=== PATIENT | female | born 1960 | race Caucasian/White ===

== ENCOUNTER 2020-05-22 16:00 | Inpatient (IN) | payer BC, SELFPAY ==
[~2020-05-22] VITALS: Ht 167.6 cm; Wt 60.5 kg
[~2020-05-22 16:00] MED LIST: GLYCOPYRROLATE 0.2 MG/ML VIAL IJ ONE; LEVOFLOXACIN 500 MG/D5W 100 ML PIGGYBACK IV ONE; LR 500 ML IV.SOLN IV ONE; METOCLOPRAMIDE HCL 10 MG/2 ML VIAL IVP ONE; MIDAZOLAM HCL 5 MG/5 ML VIAL IVP ONE; NEOSTIGMINE METHYLSULFATE 1 MG/ML, 10 ML VIAL IVP ONE; NS 1000 ML IV.SOLN IV ONE; NS IRRIG SOLN 1000 ML IR ONE; ONDANSETRON HCL 4 MG/2 ML VIAL IVP ONE; PROPOFOL 200MG/ 20ML VIAL (DIPRIVAN) IV ONE; ROCURONIUM BROMIDE 10 MG/ML (ZEMURON) IV ONE; SEVOFLURANE 15 MIN GAS INH ONE; SUCCINYLCHOLINE CHLORIDE 20 MG/ML(QUELICIN) IVP ONE; fentaNYL CITRATE/PF 100 MCG/2 ML AMP IVP ONE
[2020-05-22 16:10] VITALS: BP_SYST 140
--- NOTE | 2020-05-22 16:15 | NUR ---
PT TO REMAIN IN THE ER LOBBY UNTIL ER BED BECOMES AVAILABLE. URINE CUP PROVIDED FOR SAMPLE.
--- NOTE | 2020-05-22 16:30 | NUR ---
Patient to ER bed 6 to gown for evaluation. Side rails up. Report given to Milena.
--- NOTE | 2020-05-22 16:39 | NUR ---
ER at bedside examining patient.
--- NOTE | 2020-05-22 16:40 | NUR ---
Patient presented to ER C/O abdominal pain. Patient ambulatory to ER A&Ox4, skin pink and warm, speaking in full sentences, pain 5/10, nausea & vomiting, denies diarrhea. Patient states she has abdominal pain x3 days, decreased appetite, nausea & vomiting x2 days.
[2020-05-22] MEDS ORDERED: KETOROLAC TROMETHAMINE 60 MG/2 ML VIAL IM ONE (16:45)
--- NOTE | 2020-05-22 17:10 | NUR ---
Patient to radiology with staff via wheelchair.
[2020-05-22 17:23] LABS: BASOPHILS # (AUTO) 0.1 K/uL (0.0-0.2); BASOPHILS % (AUTO) 0.9 % (0.0-2.0); EOSINOPHILS # (AUTO) 0.1 K/uL (0.0-0.4); EOSINOPHILS % (AUTO) 1.5 % (0.0-4.0); HEMATOCRIT 40.6 % (36-48); HEMOGLOBIN 14.1 g/dL (12.0-16.0); LYMPHOCYTES # (AUTO) 2.2 K/uL (1.0-5.5); LYMPHOCYTES % (AUTO) 32.4 % (20.5-51.5); MEAN CORPUSCULAR HEMOGLOBIN 34 pg (27-31); MEAN CORPUSCULAR HGB CONC 35 % (32-36); MEAN CORPUSCULAR VOLUME 98 fL (79.0-98.0); MONOCYTES # (AUTO) 0.8 K/uL (0.0-1.0); MONOCYTES % (AUTO) 11.2 % (1.7-9.3); NEUTROPHILS # (AUTO) 3.6 K/uL (1.8-7.7); PLATELET COUNT (AUTO) 178 K/uL (130-430); RED BLOOD CELL COUNT(AUTO) 4.15 MIL/uL (4.2-6.2); RED CELL DISTRIBUTION WIDTH 16.4 % (9.0-15.0); WHITE BLOOD COUNT (AUTO) 6.7 K/uL (4.8-10.8)
--- NOTE | 2020-05-22 17:35 | NUR ---
PT TO ER BED 6 FROM RADIOLOGY
[2020-05-22 17:51] LABS: CALCIUM 8.9 mg/dL (8.4-11.0); CREATININE 0.96 mg/dL (0.55-1.30); POTASSIUM 4.1 mmol/L (3.5-5.1)
[2020-05-22 18:15] LABS: ALBUMIN 3.1 g/dL (3.4-4.8)
[2020-05-22] MEDS ORDERED: ONDANSETRON HCL 4 MG/2 ML VIAL IVP PRN (18:45)
[2020-05-22] MEDS ORDERED: MORPHINE 4 MG/ML INJ. SYRINGE IVP PRN (19:00)
--- NOTE | 2020-05-22 19:00 | NUR ---
COVID-19 RAPID SWAB OBTAINED AND SENT TO LAB
--- NOTE | 2020-05-22 19:10 | NUR ---
REPORT TO NOVEMBER RN
[2020-05-22] MEDS: D5/0.45 NS 1,000 ML IV SCH (20:17)
--- NOTE | 2020-05-22 20:29 | NUR ---
Called for a room second time, spoke with Keke , They will call back.
--- NOTE | 2020-05-22 21:10 | NUR ---
Patient will be admitted to care of . Admitted to M/S unit. Will go to room 101B. Belongings list completed. Complete and up to date summary report printed. SBAR report to be given at bedside with opportunity for questions.
--- NOTE | 2020-05-22 21:28 | NUR ---
ADMISSION: The patient, TIEN MARCIAL, 59 y/o, F admitted by BOO AGUERO MD, WITH THE DIAGNOSIS OF CHOLEDOCHOLELITHIASIS TO ROOM 130 A . [facility] RN IS AWARE . Addendum: 05/23/20 at 0004 by Sloane Mcfarland RN DX IS CHOLEDOCHOLITHIASIS
[2020-05-22 21:44] VITALS: BP_SYST 116
--- NOTE | 2020-05-22 22:41 | NUR ---
MD CALLED : DR AGUERO CALLED, NOTIFIED HIM THAT PT IS ASKING FOR FOOD AND NO DIET ORDERED , MD ORDERED NPO . ORDER ENTERED , NOTIFIED PT AND PRIMARY RN .
--- NOTE | 2020-05-22 22:52 | NUR ---
MD CALLED : PT C/O ACID REFLEX , CALLED MD AND STATED PT IS C/O SEVERE DISCOMFORT FROM ACID REFLEX , MD ORDERED PROTONIX 40 MG IV DAILY FIRST DOSE NOW , ORDER READ BACK VERIFIED AND ENTERED . PRIMARY RN NOTIFIED
--- NOTE | 2020-05-22 22:59 | NUR ---
MED PATIENT MEDICATED WITH PROTONIX IV NEW ORDER FOR C/O ACID REFLUX. NO C/O PAIN AT THIS TIME. PLAN OF CARE DISCUSSED WITH PATIENT. NPO STATUS. IVF INFUSING ORDERED.
[2020-05-22] MEDS ORDERED: PANTOPRAZOLE SODIUM 40 MG/VIAL (PROTONIX) IVP ONE (23:00)
--- NOTE | 2020-05-22 23:23 | NUR ---
CONSULT: CONSULT CALLED FOR DR. NATHANIEL BARRETO MEDIA MARKETING COORDINATOR AT THIS MOMENT I SPOKE WITH BEVERLY DICKEY REASON FOR CONSULT: CHOLEDOCHOLITHIASIS REQUESTING CONSULT: DR. AGUERO ACCOUNTING MACHINE OPERATOR PHONE NUMBER: [phone]
[2020-05-23 00:49] VITALS: BP_SYST 144
--- NOTE | 2020-05-23 01:00 | NUR ---
ROUNDS PATIENT RESTING IN BED. NO DISTRESS NOTED. VITAL SIGNS STABLE. CALL LIGHT WITH IN REACH.
--- NOTE | 2020-05-23 03:39 | NUR ---
ROUNDS PATIENT AWAKE IN BED.NO DISTRESS NOTED. DENIES PAIN AT THIS TIME.
[2020-05-23] MEDS: D5/0.45 NS 1,000 ML IV SCH ×2 (06:26→20:27)
--- NOTE | 2020-05-23 06:44 | NUR ---
CLOSING NOTES PATIENT NEEDS ATTENDED. IVF INFUSING WITH IV LINE INTACT AND PATENT. BED IN LOWEST LOCKED POSITION. CALL LIGHT WITH IN REACH.
[2020-05-23 07:24] LABS: EOSINOPHILS # (AUTO) 0.2 K/uL (0.0-0.4); EOSINOPHILS % (AUTO) 4.6 % (0.0-4.0); HEMATOCRIT 39.2 % (36-48); HEMOGLOBIN 13.4 g/dL (12.0-16.0); LYMPHOCYTES # (AUTO) 1.7 K/uL (1.0-5.5); LYMPHOCYTES % (AUTO) 33.5 % (20.5-51.5); MEAN CORPUSCULAR HEMOGLOBIN 34 pg (27-31); MEAN CORPUSCULAR HGB CONC 34 % (32-36); MEAN CORPUSCULAR VOLUME 99 fL (79.0-98.0); MONOCYTES # (AUTO) 0.5 K/uL (0.0-1.0); MONOCYTES % (AUTO) 9.1 % (1.7-9.3); NEUTROPHILS # (AUTO) 2.7 K/uL (1.8-7.7); NEUTROPHILS % (AUTO) 51.8 % (40.0-70.0); PLATELET COUNT (AUTO) 161 K/uL (130-430); RED BLOOD CELL COUNT(AUTO) 3.97 MIL/uL (4.2-6.2); RED CELL DISTRIBUTION WIDTH 16.5 % (9.0-15.0); WHITE BLOOD COUNT (AUTO) 5.2 K/uL (4.8-10.8)
--- NOTE | 2020-05-23 07:30 | NUR ---
AM ROUNDS: PATIENT ON THE BED,AWAKE,ALERT AND ORIENTED X4. IV FLUIDS RUNNING WELL AT LEFT AC INTACT. NPO MAINTAINED. CALL LIGHT WITH IN REACH. BED LOCKED AT LOWEST POSITION. DENIES ANY PAIN.STABLE.
[2020-05-23 07:45] LABS: INR 1.2 (0.8-1.2); PROTHROMBIN TIME 12.1 SECS (9.5-12.5)
[2020-05-23 07:52] LABS: ALBUMIN 2.7 g/dL (3.4-4.8); CALCIUM 8.5 mg/dL (8.4-11.0); CREATININE 0.86 mg/dL (0.55-1.30); POTASSIUM 4.4 mmol/L (3.5-5.1); TOTAL BILIRUBIN 2.7 mg/dL (0.0-1.0)
[2020-05-23 08:05] VITALS: BP_SYST 133
--- NOTE | 2020-05-23 08:30 | NUR ---
GI ROUNDS: DR MORIN IN THE ROOM AND TALK TO PT, PLAN OF CARE AND TEST TO BE DONE. PT AGREED FOR MRI-MRCP TODAY,CONSENT SIGN AND ATTACHED TO THE CHART.
[2020-05-23] MEDS: PANTOPRAZOLE SODIUM 40 MG/VIAL (PROTONIX) IVP SCH (08:42)
[2020-05-23 08:47] LABS: TOTAL IRON BIND. CAPACITY 226 ug/dL (250-450)
--- NOTE | 2020-05-23 11:10 | NUR ---
TO MRI: TO MRI VIA WHEELCHAIR BY TECH IN STABLE CONDITION.
--- NOTE | 2020-05-23 12:10 | NUR ---
BACK FROM MRI: PATIENT IS STABLE ,BACK FROM MRI.
[2020-05-23 12:48] VITALS: BP_SYST 118
[2020-05-23 13:52] LABS: BARBITURATE, URINE NEGATIVE (NEG <=200); BENZODIAZEPINE, URINE NEGATIVE (NEG <=150); CANNABINOID, URINE NEGATIVE (NEG <=50); COCAINE, URINE NEGATIVE (NEG <=150); METHAMPHETAMINES SCREEN,URINE NEGATIVE (NEG <=500); PHENCYCLIDINE SCREEN,URINE NEGATIVE (NEG <=25); URINE AMPHETAMINE NEGATIVE (NEG <=500); URINE METHADONE NEGATIVE (NEG <=200)
[2020-05-23 13:53] LABS: OPIATE, URINE NEGATIVE (NEG <=100); UR TRICYCLIC ANTIDEPRESSANTS NEGATIVE (NEG <=300); URINE OXYCODONE SCREEN NEGATIVE (NEG <=100); URINE PROPOXYPHENE SCREEN NEGATIVE (NEG <=300)
--- NOTE | 2020-05-23 15:17 | NUR ---
GI PAGE: SPOKE TO DR MORIN AND INFORMED HIM MRI HAS SHOT DOWN,SPOKE TO DAYO AT MRI AND DO NOT KNOW WHEN POWER WILL BE BACK. GI DOCTOR WILL CALL RADIOLOGY REGARDING THIS MATTER.
--- NOTE | 2020-05-23 15:20 | NUR ---
ADDED ORDER: PT CAN HAVE CLEAR LIQUID DIET PER DR MORIN.
[2020-05-23 16:33] VITALS: BP_SYST 141
--- NOTE | 2020-05-23 17:05 | NUR ---
MRI RESULTS: RELAYED RESULTS OF MRI TO DR MORIN,WITH ORDERS ADVANCE DIET TO REGULAR.TO INFORM NURSING CONCRETE ANALYST TO CANCELL ERCP FOR TOMORROW-DONE.
--- NOTE | 2020-05-23 18:47 | NUR ---
CLOSING NOTES: INFORMED PATIENT UPDATES AND RESULTS OF MRI PER DR MORIN.ADVANCE DIET TOLERATED. STILL WITH MINIMAL ABDOMINAL PAIN PER PATIENT. NO PAIN MEDS REQUESTED.CALL LIGHT WITH IN REACH. BED LOCKED AT LOWEST POSITION. CONTINUE TO MONITOR.
--- NOTE | 2020-05-23 19:55 | NUR ---
OPENING NOTES Received report from AMALIA Austin. Patient resting in bed, AAOx4, breathing evenly and nonlabored on room air. Patient has an IV on the left AC 20g, patent and benign, no s/s of infection or infiltration at this time, IVF running, patient tolerating it well. Educated patient on plan of care, fall/safety precautions, call light system, patient stated understanding with return demonstration. Patient asked for some crackers and iced water which was provided. No other needs at this time. Fall/safety precautions, will continue to monitor.
[2020-05-23 20:27] VITALS: BP_SYST 110
--- NOTE | 2020-05-23 20:27 | NUR ---
MEDICATIONS/ROUNDS Patient resting in bed, awake, breathing evenly and nonlabored on room air. Educated patient on due medication, patient stated understanding. Administered due medication patient tolerating it well. Vital signs stable. Patient denies any pain at this time. No other needs at this time. Fall/safety precautions, will continue to monitor.
--- NOTE | 2020-05-23 22:15 | NUR ---
ROUNDS Patient resting in bed, awake, breathing evenly and nonlabored on room air. Patient denies any pain at this time. No s/s of distress at this time, no other needs at this time. Fall/safety precautions, will continue to monitor.
--- NOTE | 2020-05-24 00:19 | NUR ---
ROUNDS Patient resting in bed, eyes closed, breathing evenly and nonlabored on room air. No s/s of distress at this time, no other needs at this time. Fall/safety precautions, will continue to monitor.
[2020-05-24 00:30] VITALS: BP_SYST 106
--- NOTE | 2020-05-24 02:07 | NUR ---
ROUNDS Patient resting in bed, eyes closed, breathing evenly and nonlabored on room air. No s/s of distress at this time, no other needs at this time. Fall/safety precautions, will continue to monitor the patient.
--- NOTE | 2020-05-24 06:10 | NUR ---
CLOSING NOTES Patient resting in bed, awake, breathing evenly and nonlabored on room air. Patient denies any pain at this time. Needs met throughout the shift. No s/s of distress at this time, no other needs at this time. Fall/safety precautions, will endorse care to morning shift RN.
[2020-05-24 07:11] LABS: HEPATITIS A AB, IgM Negative (Negative); HEPATITIS B CORE AB, IgM Negative (Negative); HEPATITIS B SURFACE AG Negative (Negative)
[2020-05-24 08:00] VITALS: BP_SYST 100
--- NOTE | 2020-05-24 08:00 | NUR ---
Initial notes: Patient is awake, alert and oriented, not showing any signs of distress at this time. PT IV is intact and running fluids at this time. Patient denies pain and all needs were met during shift. Patients states she feels better, awaiting for more orders from Everardo and a consult from Linda Leon. I got a full report from the cnc machinist 2nd shift nurse. Bed is low, locked, 2 side rails are up and call light is within reach.
[2020-05-24] MEDS: PANTOPRAZOLE SODIUM 40 MG/VIAL (PROTONIX) IVP SCH (08:30)
--- NOTE | 2020-05-24 10:30 | NUR ---
Patient doing well, not showing any signs of distress. asked for a surgery consult, was paged and endorsed , he will be paged. Bed is low, locked, 2 side rails are up and call light is within reach.
--- NOTE | 2020-05-24 10:37 | NUR ---
CONSULTATION: REASON FOR CONSULT: GALLBLADDER REMOVAL RECOMMENDATION CONSULTING PHYSICIAN: JUNAID ORDERED BY: LACI SPOKE WITH PRAVEENA [phone]
[2020-05-24 11:03] LABS: BASOPHILS # (AUTO) 0.1 K/uL (0.0-0.2); BASOPHILS % (AUTO) 1.2 % (0.0-2.0); EOSINOPHILS # (AUTO) 0.2 K/uL (0.0-0.4); EOSINOPHILS % (AUTO) 3.9 % (0.0-4.0); HEMATOCRIT 37.4 % (36-48); HEMOGLOBIN 12.8 g/dL (12.0-16.0); LYMPHOCYTES # (AUTO) 1.4 K/uL (1.0-5.5); LYMPHOCYTES % (AUTO) 29.8 % (20.5-51.5); MEAN CORPUSCULAR HEMOGLOBIN 34 pg (27-31); MEAN CORPUSCULAR HGB CONC 34 % (32-36); MEAN CORPUSCULAR VOLUME 99 fL (79.0-98.0); MONOCYTES # (AUTO) 0.5 K/uL (0.0-1.0); MONOCYTES % (AUTO) 10.4 % (1.7-9.3); NEUTROPHILS # (AUTO) 2.6 K/uL (1.8-7.7); NEUTROPHILS % (AUTO) 54.7 % (40.0-70.0); PLATELET COUNT (AUTO) 151 K/uL (130-430); RED BLOOD CELL COUNT(AUTO) 3.79 MIL/uL (4.2-6.2); RED CELL DISTRIBUTION WIDTH 16.6 % (9.0-15.0); WHITE BLOOD COUNT (AUTO) 4.8 K/uL (4.8-10.8)
[2020-05-24] MEDS: D5/0.45 NS 1,000 ML IV SCH ×2 (11:03→20:38)
[2020-05-24 11:25] VITALS: BP_SYST 135
[2020-05-24 11:35] LABS: ALBUMIN 2.7 g/dL (3.4-4.8); CALCIUM 8.1 mg/dL (8.4-11.0); CREATININE 0.88 mg/dL (0.55-1.30); POTASSIUM 4.4 mmol/L (3.5-5.1); TOTAL BILIRUBIN 2.2 mg/dL (0.0-1.0)
--- NOTE | 2020-05-24 13:00 | NUR ---
Patient is sleeping not showing any signs of distress. Bed is low, locked, 2 side rails are up and call light is within reach.
[2020-05-24 15:07] LABS: ANTI NUCLEAR AB WITH REFLEX Negative (Negative)
[2020-05-24 15:27] LABS: AFP, TUMOR MARKER 51.2 ng/mL (0.0-8.3); FERRITIN 501 ng/mL (15-150)
[2020-05-24 15:36] VITALS: BP_SYST 128
--- NOTE | 2020-05-24 16:00 | NUR ---
Patient is watching TV, not showing any signs of distress. Bed is low, locked, 2 side rails are up and call light is within reach.
--- NOTE | 2020-05-24 18:00 | NUR ---
Patient stated she wants to leave and not wait for or to see her today, I informed her i would paged MDs to get ETA or see if she can be DC. Paged and he said to page , paged and still waiting for call back. Bed is low, locked, 2 side rails are up and call light is within reach.
--- NOTE | 2020-05-24 19:11 | NUR ---
PAGED PAGED DOCTOR Zack QUIROGA
--- NOTE | 2020-05-24 19:45 | NUR ---
Closing notes: Patient is awake, alert and oriented, not showing any signs of distress at this time. PT IV is intact and running fluids at this time. Patient denies pain and all needs were met during shift. Patients states she feels better, but wants to be discharged. Relayed message to but he mentioned to page , he was called twiced, no call back yet. I endorsed it to the solar/renewable energy sales nurse. I gave a report to the solar/renewable energy sales nurse. Bed is low, locked, 2 side rails are up and call light is within reach.
[2020-05-24 19:50] VITALS: BP_SYST 111
--- NOTE | 2020-05-24 19:50 | NUR ---
INITIAL NOTE AT INITIAL ASSESSMENT, PATIENT IS RESTING IN BED, STABLE, NO SIGNS OF RESPIRATORY DISTRESS. PATIENT VERBALIZES TOLERABLE PAIN. PLAN OF CARE FOR THE EVENING IS COMMUNICATED WITH THE PATIENT. PATIENT DEMONSTRATES CORRECT USAGE OF CALL LIGHT AT THIS TIME. BED IS LOCKED, ALARMED, AND AT THE LOWEST LEVEL. FALL SAFETY EDUCATION PROVIDED. FALL, SAFETY, AND RESPIRATORY PRECAUTIONS WILL BE TAKEN THROUGHOUT THE SHIFT.
[2020-05-24] MEDS: MORPHINE 2 MG/ML INJ. SYRINGE IVP PRN (20:55)
--- NOTE | 2020-05-24 21:50 | NUR ---
PAIN NOTE PATIENT IS COMPLAINING OF PAIN, PRN MEDICATION IS GIVEN AT THIS TIME FOR PATIENTS PAIN COMPLAINT PER MD ORDERS. WILL REASSESS IF PRN MEDICATION GIVEN WAS EFFECTIVE. CALL LIGHT PLACED WITHIN REACH. BED IS LOCKED, ALARMED, AND AT THE LOWEST LEVEL.
--- NOTE | 2020-05-24 23:50 | NUR ---
NOTE PATIENT IS RESTING IN BED, STABLE, NO SIGNS OF RESPIRATORY DISTRESS. CALL LIGHT IS WITHIN REACH. BED IS LOCKED, ALARMED, AND AT THE LOWEST LEVEL.
[2020-05-25 01:33] VITALS: BP_SYST 147
--- NOTE | 2020-05-25 01:50 | NUR ---
NOTE PATIENT IS SLEEPING, STABLE, NO SIGNS OF RESPIRATORY DISTRESS. CALL LIGHT IS WITHIN REACH. BED IS LOCKED, ALARMED, AND AT THE LOWEST LEVEL.
--- NOTE | 2020-05-25 03:50 | NUR ---
NOTE PATIENT STATES SHE IS ANXIOUS THINKING ABOUT POSSIBLE SURGERY WITH DR. QUIROGA BECAUSE OF SEVERAL BAD REVIEWS SHE FOUND ONLINE. SHE IS STABLE, NO SIGNS OF RESPIRATORY DISTRESS. CALL LIGHT IS WITHIN REACH. BED IS LOCKED, ALARMED, AND AT THE LOWEST LEVEL.
--- NOTE | 2020-05-25 05:50 | NUR ---
NOTE PATIENT IS SLEEPING, STABLE, NO SIGNS OF RESPIRATORY DISTRESS. CALL LIGHT IS WITHIN REACH. BED IS LOCKED, ALARMED, AND AT THE LOWEST LEVEL.
--- NOTE | 2020-05-25 06:20 | NUR ---
SURGERY CONSULTATION CHANGE: COMMUNICATION W/ DR. LACI AGUERO HAS BEEN PAGED AT THIS TIME, IT WAS COMMUNICATED THAT PATIENT HAS BEEN VERY ANXIOUS, NERVOUS AND UNCOMFORTABLE AFTER SHE FOUND A "REALLY LONG LIST OF SCARY BAD REVIEWS" ON [facility] ABOUT DR. QUIROGA. SHE HAS EXPRESSED HOPE TO CHANGE SURGERY CONSULT ORDERED. DR. AGUERO HAS AGREED, AND STATED TO ORDER DR. ELIZABETH AND DISCONTINUE DR. QUIROGA CONSULTATION. WILL BE COMMUNICATED TO DR. MORIN AND PATIENT WELL.
--- NOTE | 2020-05-25 06:46 | NUR ---
CLOSING NOTE PATIENT STATED HER PAIN IS MUCH BETTER COMPARED TO WHEN SHE FIRST CAME IN. SHE STATES SHE HAS 4/10 PAIN AT REST, WHICH IS TOLERABLE FOR HER. PATIENT HAS BEEN UPDATED HER NEW SURGERY CONSULT DOCTOR ORDERED AND HIS PLANS SO FAR FOR HER THIS MORNING. PATIENT STATES SHE IS HAPPY AND LOOKS FORWARD TO MEETING HER NEW SURGEON. NO SHORTNESS OF BREATH NOTED. AT THIS TIME, PATIENT IS RESTING IN BED, STABLE, NO SIGNS OF RESPIRATORY DISTRESS. CALL LIGHT IS WITHIN REACH. BED IS LOCKED, ALARMED, AND AT THE LOWEST LEVEL. FALL, SAFETY, AND RESPIRATORY PRECAUTIONS HAVE BEEN TAKEN THROUGHOUT THE SHIFT. WILL CONTINUE TO MONITOR UNTIL SHIFT REPORT IS GIVEN AT BEDSIDE TO AM NURSE.
--- NOTE | 2020-05-25 06:51 | NUR ---
CANCELLED SURGERY CONSULT FOR DR Zack QUIROGA. SPOKE TO CALEB.
--- NOTE | 2020-05-25 06:53 | NUR ---
CONSULTATION PAGED/CALLED Reason for Consultation: [] GALLBLADDER REMOVAL Person Who was Notified: [] AURA Consulting Physician: [] DR Jenaro BREWSTER [employer] Specialty: [] GEN SURGERY Ordering Physician: [] DR AGUERO
--- NOTE | 2020-05-25 07:10 | NUR ---
COMMUNICATION W/ DR. NEY BREWSTER HAS CALLED AT THIS TIME AND STATED HE WOULD BE HAPPY TO TAKE THE PATIENT. HE HAS ORDERED FOR STAT HIDA SCAN, AND TO PLACE THE PATIENT ON NPO NOW. IS AWARE THAT THE PATIENT ONLY HAD SMALL AMOUNTS OF WATER AT NIGHT, STATES THAT IS FINE. DR. BREWSTER REQUESTED TO BE PAGED IF HIDA SCAN IS UNABLE TO BE DONE TODAY, WILL BE COMMUNICATED TO AM NURSE. ORDERS READ BACK, VERIFIED, AND WILL BE FOLLOWED IMMEDIATELY.
--- NOTE | 2020-05-25 07:15 | NUR ---
PATIENT NPO PATIENT IS EDUCATED ABOUT BEING NPO AT THIS TIME PER SURGEON REQUEST FOR HIDA SCAN THIS AM AND POSSIBLE SURGERY. PATIENT VERBALIZED BACK UNDERSTANDING. BEDSIDE TRAY IS CLEARED OF ALL FOOD AND DRINKS.
[2020-05-25 07:45] LABS: BASOPHILS # (AUTO) 0.1 K/uL (0.0-0.2); BASOPHILS % (AUTO) 1.1 % (0.0-2.0); EOSINOPHILS # (AUTO) 0.2 K/uL (0.0-0.4); EOSINOPHILS % (AUTO) 4.4 % (0.0-4.0); HEMATOCRIT 36.1 % (36-48); HEMOGLOBIN 12.3 g/dL (12.0-16.0); LYMPHOCYTES % (AUTO) 37.2 % (20.5-51.5); MEAN CORPUSCULAR HEMOGLOBIN 34 pg (27-31); MEAN CORPUSCULAR HGB CONC 34 % (32-36); MEAN CORPUSCULAR VOLUME 99 fL (79.0-98.0); MONOCYTES # (AUTO) 0.6 K/uL (0.0-1.0); MONOCYTES % (AUTO) 10.5 % (1.7-9.3); NEUTROPHILS # (AUTO) 2.5 K/uL (1.8-7.7); NEUTROPHILS % (AUTO) 46.8 % (40.0-70.0); PLATELET COUNT (AUTO) 149 K/uL (130-430); RED BLOOD CELL COUNT(AUTO) 3.65 MIL/uL (4.2-6.2); RED CELL DISTRIBUTION WIDTH 16.6 % (9.0-15.0); WHITE BLOOD COUNT (AUTO) 5.4 K/uL (4.8-10.8)
[2020-05-25 08:00] VITALS: BP_SYST 123
--- NOTE | 2020-05-25 08:00 | NUR ---
A/OX4, ON ROOM AIR. STILL REPORTS SOME PAIN /10, BUT REFUSES PAIN MEDS AT THIS TIME.
[2020-05-25] MEDS: PANTOPRAZOLE SODIUM 40 MG/VIAL (PROTONIX) IVP SCH (08:05)
[2020-05-25 08:20] LABS: BILIRUBIN,DIRECT 1.3 mg/dL (0.0-0.3); CALCIUM 8.3 mg/dL (8.4-11.0); CREATININE 0.84 mg/dL (0.55-1.30); POTASSIUM 3.8 mmol/L (3.5-5.1)
--- NOTE | 2020-05-25 10:27 | NUR ---
PATIENT IS RESTING AT TIME. TOLERATED WITHOUT DISTRESS
[2020-05-25 11:29] VITALS: BP_SYST 123
--- NOTE | 2020-05-25 13:30 | NUR ---
DR. BREWSTER IS AT BEDSIDE ASSESSING PATIENT WELL EXPLAINING THE POC.
--- NOTE | 2020-05-25 14:00 | NUR ---
PATIENT IS TAKEN TO HIDA SCAN.
--- NOTE | 2020-05-25 15:45 | NUR ---
PATIENT HAS RETURNED FROM HIDA SCAN. PATIENT APPEARS TO BE IN NO DISTRESS.
[2020-05-25] MEDS: D5/0.45 NS 1,000 ML IV SCH (15:54)
[2020-05-25 18:15] LABS: BILIRUBIN,URINE NEGATIVE (NEGATIVE); CLARITY/URINE CLEAR (CLEAR); COLOR,URINE YELLOW (YELLOW); GLUCOSE,URINE NEGATIVE (NEGATIVE); KETONES,URINE NEGATIVE (NEGATIVE); LEUKOCYTE ESTERASE ,URINE NEGATIVE (NEGATIVE); NITRITE, URINE NEGATIVE (NEGATIVE); PROTEIN URINE NEGATIVE (NEGATIVE)
[2020-05-25 18:20] LABS: BLOOD, URINE TRACE (NEGATIVE)
[2020-05-25 18:22] LABS: BACTERIA,URINE FEW /HPF (None Seen); WBC,URINE 0-3 /HPF (0-3)
[2020-05-25 19:30] VITALS: BP_SYST 121
--- NOTE | 2020-05-25 19:30 | NUR ---
INITIAL NOTE PATIENT IS STABLE AND LAYING IN BED. NO S/S OF RESPIRATORY DISTRESS NOTED. CALL LIGHT IN REACH. PATIENT SUCCESSFULLY DEMONSTRATES USAGE OF CALL LIGHT. BED IS LOCKED, AND AT THE LOWEST POSITION. PATIENT EDUCATED ON BED ALARM, PT REFUSED. PLAN OF CARE IS DISCUSSED WITH PATIENT. FALL, SAFETY, ASPIRATION, AND RESPIRATORY PRECAUTIONS WILL BE IN PLACE THROUGHOUT THE SHIFT.
--- NOTE | 2020-05-25 19:37 | NUR ---
EMESIS PT HAD 50 CC OF EMESIS NOTED AT THIS TIME. PT REFUSED ZOFRAN AT THIS TIME. PATIENT IS OTHERWISE STABLE. NO S/S OF RESPIRATORY DISTRESS NOTED. CALL LIGHT IN REACH.
--- NOTE | 2020-05-25 21:37 | NUR ---
PATIENT IS STABLE AND LAYING IN BED. NO S/S OF RESPIRATORY DISTRESS NOTED. CALL LIGHT IN REACH.
[2020-05-25 23:55] VITALS: BP_SYST 126
--- NOTE | 2020-05-26 00:15 | NUR ---
REPORT ENDORSED TO AMALIA JUNIOR. Addendum: 05/26/20 at 0018 by Uriel Nelson RN PATIENT IS STABLE AND LAYING IN BED. NO S/S OF RESPIRATORY DISTRESS NOTED. CALL LIGHT IN REACH.
--- NOTE | 2020-05-26 00:30 | NUR ---
OPENING NOTE: RECEIVED SBAR REPORT FROM LOIDA. PATIENT ASLEEP. BREATHING IS EVEN AND UNLABORED ON RA. IVF INFUSING ORDERED RATE. NO S/S ACUTE DISTRESS NOTED. SAFETY AND FALL PRECAUTION. CALL LIGHT IS WITH PATIENT. WILL CONTINUE TO MONITOR.
--- NOTE | 2020-05-26 03:30 | NUR ---
RN ROUNDS: PATIENT IS IN BED, CURRENTLY SLEEPING. NO S/S ACUTE DISTRESS NOTED. BREATHING IS EVEN AND UNLABORED. IVF INFUSING ORDERED RATE. SAFETY AND FALL PRECAUTION ARE MAINTAINED. CALL LIGHT IS WITH PATIENT. WILL CONTINUE TO MONITOR.
[2020-05-26] MEDS: D5/0.45 NS 1,000 ML IV SCH ×2 (05:52→16:05)
--- NOTE | 2020-05-26 06:49 | NUR ---
CLOSING NOTE: PATIENT IS AWAKE, RESPIRATION EVEN AND UNLABORED ON RA. DENIES PAIN. NO S/S ACUTE DISTRESS NOTED. NEW IV BAG HUNG. NO SIGN OF INFILTRATION NOTED. SAFETY AND FALL PRECAUTIONS ARE IN [place]CE. WILL ENDORSE PATIENT CARE TO DAY SHIFT RN.
[2020-05-26 07:05] LABS: EOSINOPHILS # (AUTO) 0.2 K/uL (0.0-0.4); EOSINOPHILS % (AUTO) 4.3 % (0.0-4.0); HEMATOCRIT 34.6 % (36-48); LYMPHOCYTES # (AUTO) 1.7 K/uL (1.0-5.5); LYMPHOCYTES % (AUTO) 35.1 % (20.5-51.5); MEAN CORPUSCULAR HEMOGLOBIN 34 pg (27-31); MEAN CORPUSCULAR HGB CONC 35 % (32-36); MEAN CORPUSCULAR VOLUME 99 fL (79.0-98.0); MONOCYTES # (AUTO) 0.4 K/uL (0.0-1.0); MONOCYTES % (AUTO) 9.2 % (1.7-9.3); PLATELET COUNT (AUTO) 142 K/uL (130-430); RED CELL DISTRIBUTION WIDTH 16.4 % (9.0-15.0); WHITE BLOOD COUNT (AUTO) 4.8 K/uL (4.8-10.8)
[2020-05-26 07:30] LABS: INR 1.2 (0.8-1.2); PROTHROMBIN TIME 12.3 SECS (9.5-12.5)
[2020-05-26 07:40] LABS: ALBUMIN 2.5 g/dL (3.4-4.8); CALCIUM 8.1 mg/dL (8.4-11.0); CREATININE 0.83 mg/dL (0.55-1.30); TOTAL BILIRUBIN 2.3 mg/dL (0.0-1.0)
[2020-05-26 07:51] VITALS: BP_SYST 108
[2020-05-26] MEDS: PANTOPRAZOLE SODIUM 40 MG/VIAL (PROTONIX) IVP SCH (08:05)
[2020-05-26 08:50] LABS: BASOPHILS % (AUTO) 0.4 % (0.0-2.0); NEUTROPHILS # (AUTO) 2.5 K/uL (1.8-7.7)
--- NOTE | 2020-05-26 09:25 | NUR ---
Pt transported to o.r. via bed.
[2020-05-26] MEDS ORDERED: NALOXONE HCL 0.4 MG/ML AMP (NARCAN) IVP PRN ×3 (10:15→11:00)
[2020-05-26] MEDS ORDERED: ONDANSETRON HCL 4 MG/2 ML VIAL IVP PRN ×2 (10:15→11:00)
[2020-05-26] MEDS ORDERED: HYDROmorphone 1 MG INJ. 1 MG/ML AMPUL IVP PRN (10:15)
[2020-05-26] MEDS ORDERED: KETOROLAC TROMETHAMINE 30 MG VIAL IVP PRN (10:15)
[2020-05-26] MEDS ORDERED: ACETAMINOPHEN 325 MG TABLET PO PRN (11:00)
[2020-05-26] MEDS ORDERED: HYDROcodone/ACETAMIN 5-325 MG TAB (NORCO/ VICODIN) PO PRN (11:00)
[2020-05-26] MEDS ORDERED: KETOROLAC TROMETHAMINE 30 MG VIAL ONE (11:52)
--- NOTE | 2020-05-26 12:08 | NUR ---
pt still off unit, in surgery.
[2020-05-26] MEDS ORDERED: HYDROmorphone 1 MG INJ. 1 MG/ML AMPUL ONE (12:09)
--- NOTE | 2020-05-26 12:25 | NUR ---
pt came back from surgery, pt is awake and oriented, denies pain, no sob. will do post op vitals will cont to monitor.
[2020-05-26 12:30] VITALS: BP_SYST 110
[2020-05-26 13:04] VITALS: BP_SYST 108
--- NOTE | 2020-05-26 15:11 | NUR ---
PT IN BED, C/O 10/26 PAIN, BUT PT STATED IT IS TOLERABLE. NO S/O NAUSEA. WILL CONT TO MONITOR. Addendum: 05/26/20 at 1519 by Jose Carlos Nuñez RN PT PROVIDED WITH APPLE JUICE AND HOT WATER FOR BROTH.
[2020-05-26 16:27] VITALS: BP_SYST 120
--- NOTE | 2020-05-26 16:37 | NUR ---
zofran given. pt vomitted about 150 cc of brown colored vomitus.
--- NOTE | 2020-05-26 18:30 | NUR ---
CLOSING NOTES, PT HAS BEEN STABLE, C/O PAIN BUT PAIN TOLERABLE. NO SOB, PT HAD X1 N/V. GIVEN ZOFRAN. PT KEPT ON CLEAR LIQUID DIET. WILL ENDORSE TO NIGHT NURSE.
[2020-05-26 19:00] VITALS: BP_SYST 121
--- NOTE | 2020-05-26 19:15 | NUR ---
change of shift.pt.presents quiescent affect;calm,resting.pt.s/p surgery;05/26/20.pt.presents iv fluids.iv access intact;patent location;rt.antecubital.no c/o pain,nausea.diet status:clear liquids:advance as tolerated.pt.presents nausea episode.medication; zofran ivp was administered.to f/u re;nausea.general status stable.respiratory status stable;unlabored@room air.call light/telephone w/in access of the pt.
[2020-05-26 20:00] VITALS: BP_SYST 121
--- NOTE | 2020-05-26 20:00 | NUR ---
pt.assessed.v/s assessed values w/in normal limits.no c/o pain,nausea.i have assessed the incision sites x3.intact.1 dsg presents solied status;sanguinous.to assess the dsg site.i have apprised the pt.that snacks/beverages are available w/in the shift.no requests posited@this hour.iv access intact;patent iv fluids infusing.general status stable.respiratory status stable;unlabored.pt.capable to reposition self.call light/telephone w/in access of the pt.
[2020-05-26] MEDS: LEVOFLOXACIN 500 MG/D5W 100 ML IV SCH (20:58)
[2020-05-26] MEDS: NACL 0.9% 1,000 ML IV SCH (21:00)
--- NOTE | 2020-05-26 21:00 | NUR ---
2100p medication.i have administered levaquin;abx,ivpb.pt.re-iterated to me that she presents hx;allergy;pcn/codeine. pt.had requested water/jello.i have provided the water/jellos x2.
--- NOTE | 2020-05-26 22:00 | NUR ---
pt.assessed.pt.presented iv access infiltration.i have attended to re-established iv access:location:lt.hand;#24g.i have attended to the change/cleaning the dsg;location;abdomen:ruq.x1.steri-strips intact.i have cleansed the insertion site/changed the dsx2 and applied an op-site. no c/o pain,nausea.no requests posited@this hour.pt.capable to reposition self.call light/telephone w/in access of the pt.
[2020-05-27] VITALS: BP_SYST 122
--- NOTE | 2020-05-27 | NUR ---
pt.assessed.v/s assessed values w/in normal limits.no c/o pain,nausea.iv access intact;patent iv fluids infusing.no requests posited@this hour.general status stable.respiratory status stable;unlabored.pt.capable to reposition self.call light/telephone w/in access of the pt.
--- NOTE | 2020-05-27 02:00 | NUR ---
pt.assessed.pt.presents quiescent affect;calm,somnolent.per flacc pain mgx pt.absent facial grimaces/body posturing. iv access intact;patent iv fluids infusing.general status stable.respiratory status stable;unlabored.pt.capable to reposition self.call light/telephone w/in access of the pt.
[2020-05-27] MEDS: MORPHINE 2 MG/ML INJ. SYRINGE IVP PRN (03:51)
[2020-05-27] MEDS: D5/0.45 NS 1,000 ML IV SCH (03:58)
[2020-05-27 04:00] VITALS: BP_SYST 124
--- NOTE | 2020-05-27 04:00 | NUR ---
pt.assessed.pt.had requested medication;pain.per pain mgx intensity status i have administer morphine;1mg ivp.to assess the pain medication efficacy per pain mgx protocol.no additional requests posited@this hour.general status stable.respiratory status stable;unlabored.pt.capable to reposition self.call light/telephone w/in access of the pt.
[2020-05-27] MEDS: NACL 0.9% 1,000 ML IV SCH ×3 (06:24→18:11)
--- NOTE | 2020-05-27 06:30 | NUR ---
pt.assessed.pt.presents quiescent affect;calm,resting.c/o pain,nausea.no requests posited@this hour.iv access intact;patent iv fluids infusing.i have changed the iv fluids:ns@100ml/hr per .general status stable.respiratory status stable;unlabored. pt.capable to reposition self.adria light/telephone w/in access of the pt.
[2020-05-27 06:38] LABS: BASOPHILS # (AUTO) 0.1 K/uL (0.0-0.2); BASOPHILS % (AUTO) 0.3 % (0.0-2.0); HEMATOCRIT 37.7 % (36-48); HEMOGLOBIN 12.8 g/dL (12.0-16.0); LYMPHOCYTES # (AUTO) 1.2 K/uL (1.0-5.5); LYMPHOCYTES % (AUTO) 6.9 % (20.5-51.5); MEAN CORPUSCULAR HEMOGLOBIN 34 pg (27-31); MEAN CORPUSCULAR HGB CONC 34 % (32-36); MEAN CORPUSCULAR VOLUME 99 fL (79.0-98.0); MONOCYTES # (AUTO) 1.1 K/uL (0.0-1.0); MONOCYTES % (AUTO) 6.4 % (1.7-9.3); NEUTROPHILS # (AUTO) 15.2 K/uL (1.8-7.7); NEUTROPHILS % (AUTO) 86.4 % (40.0-70.0); PLATELET COUNT (AUTO) 160 K/uL (130-430); RED BLOOD CELL COUNT(AUTO) 3.79 MIL/uL (4.2-6.2); RED CELL DISTRIBUTION WIDTH 16.5 % (9.0-15.0); WHITE BLOOD COUNT (AUTO) 17.6 K/uL (4.8-10.8)
[2020-05-27 07:04] LABS: ALBUMIN 2.8 g/dL (3.4-4.8); CREATININE 0.94 mg/dL (0.55-1.30); POTASSIUM 4.7 mmol/L (3.5-5.1); TOTAL BILIRUBIN 2.3 mg/dL (0.0-1.0)
[2020-05-27] MEDS: PANTOPRAZOLE SODIUM 40 MG/VIAL (PROTONIX) IVP SCH (08:36)
[2020-05-27 09:04] VITALS: BP_SYST 135
--- NOTE | 2020-05-27 10:39 | NUR ---
Patient A&Ox4 c/o abdominal incision pain but refused pain medication asked 3x will continue to monitor , Incision dressing are dry and intact no sign of infection. Pt reports no BM or passing gas but reports minimal burping. Abdominal region is tender but not distended BS active in all 4 quadrants. visited patient talked over labs explained the possible increase of WBCs , that her liver enzymes have gone down and that she would have to remain in the hospital because liver biopsy results are still pending. patient reports no nausea or vomiting today after breakfast, diet has been advanced to soft diet for lunch.
[2020-05-27 12:13] VITALS: BP_SYST 146
[2020-05-27] MEDS: HYDROmorphone 1 MG INJ. 1 MG/ML AMPUL IVP PRN ×2 (12:27→20:22)
[2020-05-27] MEDS: LEVOFLOXACIN 500 MG/D5W 100 ML IV SCH (12:32)
--- NOTE | 2020-05-27 13:57 | NUR ---
This inspector automatic typewriter received a call from Emily from labs reporting that patient has MRSA to nares and patient is now placed on contact precautions.
[2020-05-27 16:36] VITALS: BP_SYST 125
--- NOTE | 2020-05-27 19:30 | NUR ---
OPENING NOTES Patient is resting, no signs of distress noted. IV site patent, dressings, c/d/i, IVF running. Patient has surgical dressings c/d/i, abdominal in place. Patient ambulates to the restroom with steady gait. Call light within reach, bed alarm on, bed at lowest position. Will continue to monitor.
[2020-05-27 20:00] VITALS: BP_SYST 132
[2020-05-27] MEDS: MUPIROCIN 2% TOPICAL OINTMENT 22 GM TP SCH (20:10)
[2020-05-28] VITALS: BP_SYST 135
[2020-05-28] MEDS: NACL 0.9% 1,000 ML IV SCH (06:18)
--- NOTE | 2020-05-28 07:22 | NUR ---
CLOSING NOTES Patient is resting, stating pain is tolerable at this time. IV site patent, dressings, c/d/i, IVF running. Call light within reach, bed alarm on, bed at lowest position. All needs met throughout shift. Will endorse care to oncoming shift.
--- NOTE | 2020-05-28 07:25 | NUR ---
opening note received sbar from night RN, patient in bed, respirations even, non labored, bed in low and locked position, call light within reach, bed alarm on
[2020-05-28 08:00] VITALS: BP_SYST 132
--- NOTE | 2020-05-28 08:00 | NUR ---
nurse note obtained VS, administered morning medication. patient sitting up in bed, respirations even, non labored, bed in low and locked position, patient refuses to wear scd's, educated patient regarding the indications of scd's, patient verbalized understanding, continues to refuse, denies any pain at this time,
[2020-05-28] MEDS: PANTOPRAZOLE SODIUM 40 MG/VIAL (PROTONIX) IVP SCH (08:05)
--- NOTE | 2020-05-28 08:05 | NUR ---
MD ROUNDS DR MORIN BEDSIDE EXAMINING PATIENT
[2020-05-28] MEDS: MUPIROCIN 2% TOPICAL OINTMENT 22 GM TP SCH (08:12)
[2020-05-28 08:40] LABS: ALBUMIN 2.6 g/dL (3.4-4.8); CALCIUM 8.2 mg/dL (8.4-11.0); CREATININE 0.83 mg/dL (0.55-1.30); POTASSIUM 3.7 mmol/L (3.5-5.1); TOTAL BILIRUBIN 1.8 mg/dL (0.0-1.0)
--- NOTE | 2020-05-28 10:00 | NUR ---
NURSE NOTE PATIENT SITTING IN BED, RESPIRATIONS EVEN, NON LABORED, BED IN LOW AND LOCKED POSITION, CALL LIGHT WITHIN REACH
[2020-05-28 10:50] LABS: BASOPHILS % (AUTO) 0.2 % (0.0-2.0); EOSINOPHILS % (AUTO) 0.1 % (0.0-4.0); HEMATOCRIT 38.2 % (36-48); HEMOGLOBIN 12.9 g/dL (12.0-16.0); LYMPHOCYTES # (AUTO) 2.6 K/uL (1.0-5.5); LYMPHOCYTES % (AUTO) 18.8 % (20.5-51.5); MEAN CORPUSCULAR HEMOGLOBIN 33 pg (27-31); MEAN CORPUSCULAR HGB CONC 34 % (32-36); MEAN CORPUSCULAR VOLUME 99 fL (79.0-98.0); MONOCYTES # (AUTO) 1.2 K/uL (0.0-1.0); MONOCYTES % (AUTO) 8.8 % (1.7-9.3); NEUTROPHILS # (AUTO) 9.9 K/uL (1.8-7.7); NEUTROPHILS % (AUTO) 72.1 % (40.0-70.0); PLATELET COUNT (AUTO) 160 K/uL (130-430); RED BLOOD CELL COUNT(AUTO) 3.86 MIL/uL (4.2-6.2); RED CELL DISTRIBUTION WIDTH 16.9 % (9.0-15.0); WHITE BLOOD COUNT (AUTO) 13.7 K/uL (4.8-10.8)
[2020-05-28] MEDS: LEVOFLOXACIN 500 MG/D5W 100 ML IV SCH (11:57)
--- NOTE | 2020-05-28 12:00 | NUR ---
NURSE NOTE PATIENT SITTING IN BED, RESPIRATIONS EVEN, NON LABORED, BED IN LOW AND LOCKED POSITION, CALL LIGHT WITHIN REACH
[2020-05-28 13:06] VITALS: BP_SYST 131
[2020-05-28] MEDS ORDERED: BACTROBAN TP (13:42)
[2020-05-28] MEDS ORDERED: TRAM100C3 PO (13:42)
[2020-05-28 14:26] VITALS: BP_SYST 131
--- NOTE | 2020-05-28 14:45 | NUR ---
D/C Patient Patient given medication reconciliation form and D/C instructions. Exit Care provided. Patient verbalized understanding. MD discussed with patient the results and treatment provided. Ambulatory with steady gait for discharge to home. Patient in stable condition, ID band removed. IV catheter removed, intact and dressing applied, no active bleeding. Patient educated on pain management. All belongings sent with patient. Patient wheeled via wheel chair to parking lot to awaiting car
[2020-06-04 12:37] LABS: ANTI-SMOOTH MUSCLE AB 51 Units (0-19)
[2020-06-06 09:53] LABS: CERULOPLASMIN 29.2 mg/dL (19.0-39.0)
== END 2020-05-28 14:45 | disposition home or self-care (01) | DRG 418 ==
LOC: SED 16:00 → SMU 18:44
PROVIDERS: ADMIT Internal Medicine; ATTEND Internal Medicine
PROC: BF121ZZ Fluoroscopy of Gallbladder using Low Osmolar Contrast (ICD-10-PCS; 2020-05-26)
PROC: 0FB03ZX Excision of Liver, Percutaneous Approach, Diagnostic (ICD-10-PCS; 2020-05-26)
PROC: 0FT44ZZ Resection of Gallbladder, Percutaneous Endoscopic Approach (ICD-10-PCS; principal; 2020-05-26 09:00)
DX: K80.12 Calculus of gallbladder with acute and chronic cholecystitis without obstruction (principal); R17 Unspecified jaundice; G89.29 Other chronic pain; Z20.828 Contact with and (suspected) exposure to other viral communicable diseases; K66.0 Peritoneal adhesions (postprocedural) (postinfection); Z88.5 Allergy status to narcotic agent; Z88.0 Allergy status to penicillin; Z98.1 Arthrodesis status
CPT/HCPCS: 36415; 71045; 74018; 74181; 78226; 80048; 80053; 80074; 80307; 81000-TC; 82105; 82247-TC; 82248-TC; 82390; 82728; 83516; 83540-TC; 83550-TC; 83690-TC; 85025; 85610-TC; 85730-TC; 86038; 86886; 86900; 86901; 86920; 87081; 88304; 88307; 88313; 88342; 93005; 94010; 96372; 99285; A9537; C1727; C9113; G0480; J0330; J1170; J1885; J1956; J2250; J2270; J2405; J2704; J2710; J2765; J3010; J3490; J7030; J7120; Q9967